=== PATIENT | female | born 1985 | race Hispanic/Latino ===

== ENCOUNTER 2017-04-17 11:23 | Inpatient (IN) | payer MEDICAID, SELFPAY ==
[~2017-04-17] VITALS: Ht 152.4 cm; Wt 94.3 kg
[2017-04-17 14:32] LABS: HEMATOCRIT 38.1 % (36-48); MEAN CORPUSCULAR HEMOGLOBIN 30.4 pg (27.0-33.0); MEAN CORPUSCULAR HGB CONC 33.3 g/dL (32.0-36.0); MEAN CORPUSCULAR VOLUME 91.2 fL (79-99); PLATELET COUNT (AUTO) 329 K/uL (130-400); RED BLOOD CELL COUNT(AUTO) 4.18 MIL/uL (4.00-5.50); RED CELL DISTRIBUTION WIDTH 13.8 % (11.0-15.5); WHITE BLOOD COUNT (AUTO) 8.7 K/uL (4.8-10.8)
[2017-04-18] MEDS ORDERED: LACTATED RINGERS 1000ML 1,000 ML IV SCH (05:45)
[2017-04-18] MEDS ORDERED: GENTAMICIN SULFATE 240 MG in SODIUM CHLORIDE 0.9% 100 ML IV PRN (05:45)
[2017-04-18] MEDS ORDERED: CLINDAMYCIN 900 MG/D5% WATER 50 ML IVPB PRN (05:45)
[2017-04-18] MEDS ORDERED: CEFAZOLIN SODIUM 1 GM VIAL ONE (06:15)
[2017-04-18] MEDS ORDERED: EPHEDRINE-NS PF 50MG/5ML SYRINGE IV ONE (06:52)
[2017-04-18] MEDS ORDERED: DEXAMETHASONE SOD PHOSPHATE 10MG/ML 1ML VIAL ONE (07:01)
[2017-04-18] MEDS ORDERED: ONDANSETRON HCL 4 MG/2 ML VIAL ONE (07:01)
[2017-04-18 08:18] LABS: HEPATITIS Bs ANTIGEN SCREEN P Negative (Negative)
[2017-04-18] MEDS ORDERED: OXYTOCIN-LR 20 UNITS/1000 ML 1,000 ML IV PRN (08:27)
[2017-04-18] MEDS ORDERED: MORPHINE SULFATE 2 MG/ML 1ML SYG IVP PRN (08:30)
[2017-04-18] MEDS ORDERED: HYDROCODONE/ACETAMINOPHEN 5/325 MG TAB PO PRN (08:30)
[2017-04-18] MEDS ORDERED: ONDANSETRON HCL 4 MG/2 ML 8 MG in SODIUM CHLORIDE 0.9% 50 ML IVP NR (08:30)
[2017-04-18] MEDS ORDERED: NALOXONE HCL 0.4 MG/1 ML ML IVP PRN (08:30)
[2017-04-18] MEDS ORDERED: DiphenhydrAMINE HCL 50 MG/ML VIAL IVP PRN (08:30)
[2017-04-18] MEDS ORDERED: ONDANSETRON HCL 4 MG/2 ML VIAL IVP PRN ×2 (08:30)
[2017-04-18] MEDS ORDERED: PROMETHAZINE HCL 25 MG/ML 1ML AMPULE IM PRN (08:30)
[2017-04-18] MEDS ORDERED: METOCLOPRAMIDE 10 MG/2 ML VIAL IVP PRN (08:30)
[2017-04-18] MEDS ORDERED: EPHEDRINE SULFATE 50 MG/ML AMPULE IVP PRN (08:30)
[2017-04-18 08:50] VITALS: BP 120/75
[2017-04-18] MEDS: MEPERIDINE-PF 75 MG/ML SYG IM PRN ×3 (10:04→23:40)
[2017-04-18] MEDS: PROMETHAZINE HCL 25 MG/ML 1ML AMPULE IM PRN ×3 (10:04→23:39)
[2017-04-18 11:49] VITALS: BP 113/62
[2017-04-18] MEDS: HYDROCODONE/ACETAMINOPHEN 5/325 MG TAB PO PRN ×2 (12:23→18:55)
[2017-04-18] MEDS ORDERED: OXYTOCIN 10 USP UNITS/ML ONE (14:33)
[2017-04-18 16:02] VITALS: BP 109/57
[2017-04-18] MEDS ORDERED: PNV1TABL17 PO (17:14)
[2017-04-18] MEDS: DIPH,PERTUSS(ACELL),TET VAC/PF 0.5 ML VIAL IM SCH (18:54)
[2017-04-18] MEDS: FLU VACC QS2017-18 36MOS UP/PF 60 MCG/0.5 ML ML IM SCH (18:55)
[2017-04-18 19:40] VITALS: BP 98/60
[2017-04-18] MEDS: DEXTROSE 5 %-0.45 % NACL 1,000 ML IV PRN (21:32)
[2017-04-18 23:30] VITALS: BP 105/50
[2017-04-19] MEDS ORDERED: BISACODYL 10 MG SUPP.RECT RC PRN (01:45)
[2017-04-19] MEDS ORDERED: LANOLIN 30GM OINTMENT TP PRN (01:45)
[2017-04-19] MEDS ORDERED: HYDROCODONE/ACETAMINOPHEN 5/325 MG TAB PO PRN (01:45)
[2017-04-19] MEDS ORDERED: ACETAMINOPHEN EXTRA STRENGTH 500 MG TABLET PO PRN (01:45)
[2017-04-19 03:06] VITALS: BP 107/56
[2017-04-19] MEDS: HYDROCODONE/ACETAMINOPHEN 5/325 MG TAB PO PRN (03:47)
[2017-04-19] MEDS: DEXTROSE 5 %-0.45 % NACL 1,000 ML IV PRN (03:49)
[2017-04-19 05:53] LABS: MEAN CORPUSCULAR HEMOGLOBIN 31.2 pg (27.0-33.0); MEAN CORPUSCULAR HGB CONC 34.7 g/dL (32.0-36.0); MEAN CORPUSCULAR VOLUME 90.1 fL (79-99); PLATELET COUNT (AUTO) 270 K/uL (130-400); RED BLOOD CELL COUNT(AUTO) 3.33 MIL/uL (4.00-5.50); RED CELL DISTRIBUTION WIDTH 13.9 % (11.0-15.5); WHITE BLOOD COUNT (AUTO) 10.7 K/uL (4.8-10.8)
[2017-04-19] MEDS: FLU VACC QS2017-18 36MOS UP/PF 60 MCG/0.5 ML ML IM SCH (06:00)
[2017-04-19 08:08] VITALS: BP 114/58
[2017-04-19] MEDS: SIMETHICONE 80 MG TAB.CHEW PO PRN ×2 (08:16→20:52)
[2017-04-19] MEDS: IBUPROFEN 600 MG TABLET PO PRN ×2 (08:16→17:43)
[2017-04-19] MEDS: DOCUSATE SODIUM 100 MG CAP PO SCH ×2 (08:16→20:52)
[2017-04-19 12:20] VITALS: BP 120/69
[2017-04-19] MEDS: ACETAMINOPHEN-CODEINE 300/30MG TAB PO PRN ×2 (15:07→20:55)
[2017-04-19 16:07] VITALS: BP 117/71
[2017-04-19 19:32] VITALS: BP 123/72
[2017-04-19] MEDS: GUAIFENESIN-DM 200/20 MG 10 ML PO PRN (21:00)
[2017-04-19 23:40] VITALS: BP 109/65
[2017-04-20 03:42] VITALS: BP 111/61
[2017-04-20] MEDS: GUAIFENESIN-DM 200/20 MG 10 ML PO PRN (04:07)
[2017-04-20] MEDS: FLU VACC QS2017-18 36MOS UP/PF 60 MCG/0.5 ML ML IM SCH (06:00)
[2017-04-20 07:54] VITALS: BP 102/67
[2017-04-20] MEDS: SIMETHICONE 80 MG TAB.CHEW PO PRN (08:15)
[2017-04-20] MEDS: DOCUSATE SODIUM 100 MG CAP PO SCH (08:15)
[2017-04-20] MEDS: IBUPROFEN 600 MG TABLET PO PRN (08:15)
[2017-04-20] MEDS: DIPH,PERTUSS(ACELL),TET VAC/PF 0.5 ML VIAL IM SCH (09:30)
[2017-04-20] MEDS: ACETAMINOPHEN-CODEINE 300/30MG TAB PO PRN (10:56)
[2017-04-20 12:29] VITALS: BP 115/62
== END 2017-04-20 12:55 | disposition home or self-care (01) | DRG 540 ==
LOC: EDSTATUS 11:30 → LDH 04-18 05:03 → WSH 04-18 08:50
PROVIDERS: ADMIT Obstetrics & Gynecology; ATTEND Obstetrics & Gynecology
PROC: 10D00Z1 Extraction of Products of Conception, Low, Open Approach (ICD-10-PCS; principal; 2017-04-18 07:00)
PROC: 3E0234Z Introduction of Serum, Toxoid and Vaccine into Muscle, Percutaneous Approach (ICD-10-PCS; 2017-04-20)
DX: O34.211 Maternal care for low transverse scar from previous cesarean delivery (principal); Z23 Encounter for immunization; Z37.0 Single live birth; Z3A.39 39 weeks gestation of pregnancy
CPT/HCPCS: 36415; 59510; 85027; 86592; 86850; 86900; 86901; 87340; A4344; A4450; A4606; J0690; J1100; J1580; J2175; J2405; J2550; J2590; J3490; J7120; Q2038